=== PATIENT | male | born 1990 | race African-American/Black ===

== ENCOUNTER 2019-12-17 16:14 | Emergency (ER) | payer SELFPAY | END 2019-12-17 17:14 | disposition home or self-care (01) | LOC: ERS 16:14 | DX: K02.9 Dental caries, unspecified (principal); J45.909 Unspecified asthma, uncomplicated | CPT/HCPCS: 99281 ==

== ENCOUNTER 2020-04-30 22:05 | Emergency (ER) | payer SELFPAY | END 2020-04-30 22:36 | disposition left against medical advice (07) | LOC: ERS 22:05 | DX: Z53.21 Procedure and treatment not carried out due to patient leaving prior to being seen by health care provider (principal) ==

== ENCOUNTER 2021-04-27 21:41 | Emergency (ER) | payer BC ==
[2021-04-27] MEDS ORDERED: Fluorescein Opthalmic Strip ONE (22:06)
[2021-04-27] MEDS ORDERED: Proparacaine 0.5% Opth 15 ML BOT ONE (22:08)
== END 2021-04-27 22:29 | disposition home or self-care (01) ==
LOC: ERS 21:41
DX: H16.002 Unspecified corneal ulcer, left eye (principal); J45.909 Unspecified asthma, uncomplicated
CPT/HCPCS: 99283

== ENCOUNTER 2022-07-13 14:38 | Emergency (ER) | payer SELFPAY | END 2022-07-13 20:37 | disposition left against medical advice (07) | LOC: ERS 14:38 | DX: Z53.21 Procedure and treatment not carried out due to patient leaving prior to being seen by health care provider (principal) ==